=== PATIENT | female | born 1995 | race Caucasian/White ===

== ENCOUNTER 2016-11-16 05:42 | Day surgery (SDC) | payer OTHER ==
[~2016-11-16] VITALS: Ht 160 cm; Wt 91.0 kg
[~2016-11-16 05:42] MED LIST: AMOXICILLIN125 MG PO; BACTRIM,SEPT1 TABLET PO; BENTYL10 MG PO; CHROMAGEN,1 CAPSULE PO; CLEOCIN VAGINAL40 MG VG; ENDOCET 5-3251 EACH PO; FLAGYL500 MG PO; HYDROCODON-ACE1 EAC7 PO; IBUPROFEN800 MG PO; KEFLEX500 MG PO; LORTAB 5-325 M1 EACH PO; MACROBID100 MG PO; MEDROXYPRO150 MG/1 M IM; MOTRIN600 MG PO; Motrin PO; NAPROSYN375 MG PO; NORCO 5/3251 TABLET PO; OMEPRAZOLE40 M1 PO; PEN-VEE K,VEET500 MG PO; PRENATAL TABLE1 EAC3 PO; PRENATAL TABLE1 EACH PO; SERTRALINE HCL50 MG PO; TUMS500 MG PO; TYLENOL EXTRA500 MG PO; TYLENOL WITH C1 EACH PO; VIBRAMYCIN100 MG PO; Vicodin,Norco 5/325 PO; ZANTAC150 MG PO; ZOFRAN ODT4 MG PO; ZOFRAN ODT8 MG PO; ZOFRAN4 MG PO; ZOLOFT50 MG PO
[2016-11-16] MEDS ORDERED: TUMS500 MG PO (06:11)
[2016-11-16] MEDS ORDERED: ZANTAC150 MG PO (06:12)
[2016-11-16] MEDS ORDERED: MOTRIN400 MG PO (06:13)
[2016-11-16 06:16] VITALS: BP 126/80
[2016-11-16] MEDS ORDERED: HYDROCODON-ACE1 EAC7 PO (09:18)
[2016-11-16] MEDS ORDERED: IBUPROFEN800 MG PO (09:18)
[2016-11-16 10:10] VITALS: BP 134/84
[2016-11-16 10:51] VITALS: BP 157/92
== END 2016-11-16 10:50 | disposition home or self-care (01) ==
LOC: SDC 05:42
DX: R10.2 Pelvic and perineal pain (principal); N90.7 Vulvar cyst; N85.4 Malposition of uterus; Z98.51 Tubal ligation status; E66.9 Obesity, unspecified; Z68.34 Body mass index [BMI] 34.0-34.9, adult; G25.81 Restless legs syndrome; F17.200 Nicotine dependence, unspecified, uncomplicated; Z87.42 Personal history of other diseases of the female genital tract; Z82.49 Family history of ischemic heart disease and other diseases of the circulatory system; Z83.3 Family history of diabetes mellitus; Z82.0 Family history of epilepsy and other diseases of the nervous system; Z83.49 Family history of other endocrine, nutritional and metabolic diseases; Z82.5 Family history of asthma and other chronic lower respiratory diseases; Z80.1 Family history of malignant neoplasm of trachea, bronchus and lung; Z80.42 Family history of malignant neoplasm of prostate
CPT/HCPCS: 88305; J0131; J0690; J1100; J1170; J1885; J2250; J2405; J2710; J3010; J7120

== ENCOUNTER 2016-12-17 19:57 | Emergency (ER) | payer OTHER ==
[~2016-12-17] VITALS: Ht 160 cm; Wt 93.6 kg
[~2016-12-17 19:57] MED LIST changes: +MOTRIN400 MG PO
[2016-12-17 20:54] LABS: BASOPHIL COUNT 0.1 K/uL (0-0.1); EOSINOPHIL (%) 1.8 % (0-5); EOSINOPHIL COUNT 0.2 K/uL (0-0.3); HEMATOCRIT 41.5 % (36.0-46.0); IMMATURE GRANULOCYTE (%) 0.5 % (0.0-0.7); IMMATURE GRANULOCYTE COUNT 0.1 K/uL; INSTRUMENT ABS NEUTROPHIL CT 8.5 K/uL; LYMPHOCYTE COUNT 3.1 K/uL (1.0-2.8); MCH 28.5 PG (29.0-34.0); MCHC 32.8 G/DL (30.0-36.0); MEAN PLAT.VOLUME 10.3 uM^3 (9.5-12.4); MONOCYTE (%) 3.9 % (3-12); MONOCYTE COUNT 0.5 K/uL (0-0.8); NEUTROPHIL (%) 68.2 % (45-76); NEUTROPHIL COUNT 8.5 K/uL (1.8-6.4); PLATELET COUNT 283 K/uL (156-360); RBC DIS.WIDTH-CV 13.1 % (11.8-14.6); RBC DIS.WIDTH-SD 41.6 % (39-53); RED BLOOD COUNT 4.77 M/uL (3.80-5.20); WHITE BLOOD COUNT 12.5 K/uL (4.1-10.2)
[2016-12-17 21:06] LABS: ADD MIUA? YES; BILIRUBIN NEGATIVE; BLOOD NEGATIVE; COLOR STRAW ((YELLOW)); GLUCOSE (STRIP) NEGATIVE; KETONES NEGATIVE; LEUKOCYTES SMALL; NITRITE NEGATIVE; PROTEIN (STRIP) NEGATIVE; SPECIFIC GRAVITY 1.009 (1.000-1.030); UROBILINOGEN 0.2 MG/DL (0.2-1.0)
[2016-12-17 21:06] LABS: CHLORIDE 107 mEq/L (99-109); SODIUM 139 mEq/L (136-147)
[2016-12-17 21:08] LABS: GLUCOSE 87 mg/dL (70-99)
[2016-12-17 21:10] LABS: ANION GAP 9 MEQ/L (2-14); TOTAL BILIRUBIN 0.1 mg/dL (0.0-1.0)
[2016-12-17 21:10] LABS: BACTERIA RARE /HPF; EPITHELIAL CELLS RARE /HPF; MUCUS NONE SEEN /LPF; RED BLOOD CELLS 0-5 /HPF (0-5); WHITE BLOOD CELLS 0-5 /HPF (0-5)
[2016-12-17 21:12] LABS: ALKALINE PHOSPHATASE 75 IU/L (3-129); GFR ESTIMATE (CALCULATED) > 59 mL/min/
[2016-12-17 21:13] LABS: UREA NITROGEN (BUN) 11 mg/dL (9-23)
[2016-12-17 21:15] LABS: LIPASE 36 U/L (1.0-51.0)
[2016-12-17 21:22] LABS: QUANTITATIVE HCG < 4.0 MIU/ML
[2016-12-17] MEDS ORDERED: NORCO 5/3251 TABLET PO (22:24)
[2016-12-17] MEDS ORDERED: BENTYL10 MG PO (22:24)
[2016-12-17] MEDS ORDERED: ZOFRAN ODT8 MG PO (22:24)
[2016-12-18 00:04] VITALS: BP 119/79
== END 2016-12-18 00:05 | disposition home or self-care (01) ==
LOC: RME 19:57 → EME 19:57 → RME 12-18 00:05
PROVIDERS: Physician Assistant
DX: R10.9 Unspecified abdominal pain (principal); G43.909 Migraine, unspecified, not intractable, without status migrainosus; K21.9 Gastro-esophageal reflux disease without esophagitis; F17.200 Nicotine dependence, unspecified, uncomplicated
CPT/HCPCS: 74177; 80053; 81003; 83690; 84702; 85025; 99281; 99284; J2270

== ENCOUNTER 2017-07-02 13:53 | Emergency (ER) | payer OTHER ==
[~2017-07-02] VITALS: Ht 160 cm; Wt 92.1 kg
[2017-07-02 14:11] LABS: HEMATOCRIT 43.3 % (36.0-46.0); MCH 29.1 PG (29.0-34.0); MCHC 33.5 G/DL (30.0-36.0); MCV 86.8 FL (83-99); MEAN PLAT.VOLUME 10.6 uM^3 (9.5-12.4); PLATELET COUNT 276 K/uL (156-360); RBC DIS.WIDTH-CV 12.3 % (11.8-14.6); RBC DIS.WIDTH-SD 39.3 % (39-53); RED BLOOD COUNT 4.99 M/uL (3.80-5.20); WHITE BLOOD COUNT 10.3 K/uL (4.1-10.2)
[2017-07-02 14:20] LABS: CHLORIDE 108 mEq/L (99-109); POTASSIUM 4.3 mEq/L (3.7-5.4); SODIUM 138 mEq/L (136-147)
[2017-07-02 14:23] LABS: GLUCOSE 128 mg/dL (70-99)
[2017-07-02 14:24] LABS: ANION GAP 7 MEQ/L (2-14)
[2017-07-02 14:25] LABS: TOTAL BILIRUBIN 0.4 mg/dL (0.0-1.0)
[2017-07-02 14:26] LABS: ALKALINE PHOSPHATASE 74 IU/L (3-129); GFR ESTIMATE (CALCULATED) > 59 mL/min/
[2017-07-02 14:27] LABS: UREA NITROGEN (BUN) 14 mg/dL (9-23)
[2017-07-02 14:37] LABS: QUANTITATIVE HCG < 4.0 MIU/ML
[2017-07-02 17:02] LABS: ADD MIUA? YES; BILIRUBIN NEGATIVE; BLOOD NEGATIVE; COLOR YELLOW ((YELLOW)); GLUCOSE (STRIP) NEGATIVE; KETONES NEGATIVE; LEUKOCYTES LARGE; NITRITE POSITIVE; PROTEIN (STRIP) 30; UROBILINOGEN 0.2 MG/DL (0.2-1.0)
[2017-07-02 17:21] LABS: SPECIFIC GRAVITY 1.072 (1.000-1.030)
[2017-07-02 17:27] LABS: BACTERIA 1+ /HPF; CASTS NONE SEEN /LPF; CRYSTALS NONE SEEN; EPITHELIAL CELLS 1+ /HPF; MUCUS NONE SEEN /LPF; RED BLOOD CELLS 0-5 /HPF (0-5); UCUL ADDED? YES
[2017-07-02] MEDS ORDERED: BACTRIM,SEPT1 TABLET PO (17:29)
[2017-07-02] MEDS ORDERED: BENTYL10 MG PO (17:30)
[2017-07-02] MEDS ORDERED: ZOFRAN ODT4 MG PO (17:30)
[2017-07-02 17:39] VITALS: BP 115/78
== END 2017-07-02 17:39 | disposition home or self-care (01) ==
LOC: EME 13:53
DX: N39.0 Urinary tract infection, site not specified (principal); R11.2 Nausea with vomiting, unspecified; R53.83 Other fatigue; Z90.49 Acquired absence of other specified parts of digestive tract; Z87.440 Personal history of urinary (tract) infections; F17.200 Nicotine dependence, unspecified, uncomplicated
CPT/HCPCS: 74177; 80053; 81003; 84702; 85027; 87077; 87086; 87186; 99281; 99284; J1885; J2405; J7030

== ENCOUNTER 2017-09-18 11:10 | Emergency (ER) | payer OTHER ==
[~2017-09-18] VITALS: Ht 160 cm; Wt 95.0 kg
[2017-09-18 13:17] LABS: HEMATOCRIT 37.5 % (36.0-46.0); MCH 29.9 PG (29.0-34.0); MCHC 34.7 G/DL (30.0-36.0); MCV 86.2 FL (83-99); PLATELET COUNT 274 K/uL (156-360); RBC DIS.WIDTH-CV 11.6 % (11.8-14.6); RED BLOOD COUNT 4.35 M/uL (3.80-5.20); WHITE BLOOD COUNT 6.7 K/uL (4.1-10.2)
[2017-09-18 13:25] LABS: ALBUMIN 3.8 g/dL (3.2-4.8); CHLORIDE 108 mEq/L (99-109)
[2017-09-18 13:28] LABS: GLUCOSE 94 mg/dL (70-99); TOTAL PROTEIN 6.6 g/dL (6.4-8.3)
[2017-09-18 13:30] LABS: TOTAL BILIRUBIN 0.4 mg/dL (0.0-1.0)
[2017-09-18 13:31] LABS: ALKALINE PHOSPHATASE 85 IU/L (3-129)
[2017-09-18 13:32] LABS: CREATININE 0.7 mg/dL (0.6-1.3); GFR ESTIMATE (CALCULATED) > 59 mL/min/
[2017-09-18 13:33] LABS: AST (GOT) 37 IU/L (2-34); UREA NITROGEN (BUN) 7 mg/dL (9-23)
[2017-09-18 13:34] LABS: ALT (GPT) 118 IU/L (3-49)
[2017-09-18 13:40] LABS: SODIUM 143 mEq/L (136-147)
[2017-09-18 13:43] LABS: QUANTITATIVE HCG < 4.0 MIU/ML
[2017-09-18] MEDS ORDERED: PEPCID20 MG PO (14:53)
[2017-09-18] MEDS ORDERED: MEDROL DOSEPAK4 MG PO (14:53)
[2017-09-18 15:23] VITALS: BP 130/86
== END 2017-09-18 15:25 | disposition home or self-care (01) ==
LOC: EME 11:10
PROVIDERS: Nurse Practitioner Family
DX: L30.9 Dermatitis, unspecified (principal); L29.9 Pruritus, unspecified; J02.9 Acute pharyngitis, unspecified; R63.1 Polydipsia; R53.83 Other fatigue; Z87.440 Personal history of urinary (tract) infections; F17.200 Nicotine dependence, unspecified, uncomplicated
CPT/HCPCS: 80053; 81003; 84702; 85027; 87651 90; 99281; 99284; J1100; J1200

== ENCOUNTER → 2017-10-07 | Outpatient (CLI) | payer OTHER ==
[~2017-10-07] MED LIST changes: +MEDROL DOSEPAK4 MG PO; +PEPCID20 MG PO
== END | disposition home or self-care (01) ==
LOC: AMB 09:20
DX: K22.10 Ulcer of esophagus without bleeding (principal); G25.81 Restless legs syndrome; F41.8 Other specified anxiety disorders; E66.9 Obesity, unspecified; Z68.35 Body mass index [BMI] 35.0-35.9, adult; F17.200 Nicotine dependence, unspecified, uncomplicated; Z80.1 Family history of malignant neoplasm of trachea, bronchus and lung; Z82.49 Family history of ischemic heart disease and other diseases of the circulatory system; Z83.3 Family history of diabetes mellitus; Z83.49 Family history of other endocrine, nutritional and metabolic diseases; Z80.42 Family history of malignant neoplasm of prostate; Z82.5 Family history of asthma and other chronic lower respiratory diseases
CPT/HCPCS: 88305; 88342 TC; J2250

== ENCOUNTER 2017-10-16 21:13 | Emergency (ER) | payer OTHER ==
[~2017-10-16] VITALS: Ht 160 cm; Wt 97.5 kg
[~2017-10-16 21:13] MED LIST changes: +TYLENOL REGULA325 MG PO
[2017-10-16 23:22] VITALS: BP 135/96
== END 2017-10-16 23:22 | disposition home or self-care (01) ==
LOC: EME 21:13
DX: M79.604 Pain in right leg (principal); M79.89 Other specified soft tissue disorders; F17.200 Nicotine dependence, unspecified, uncomplicated
CPT/HCPCS: 93971; 99281; 99284

== ENCOUNTER → 2017-10-21 | Outpatient (CLI) | payer OTHER ==
[~2017-10-21] VITALS: Ht 160 cm; Wt 97.1 kg
== END | disposition home or self-care (01) ==
LOC: AMB 07:50
PROC: 0DJD8ZZ Inspection of Lower Intestinal Tract, Via Natural or Artificial Opening Endoscopic (ICD-10-PCS; principal; 2017-10-21)
DX: R10.84 Generalized abdominal pain (principal); F41.8 Other specified anxiety disorders; F17.200 Nicotine dependence, unspecified, uncomplicated
CPT/HCPCS: J2250

== ENCOUNTER 2018-02-20 19:53 | Emergency (ER) | payer OTHER ==
[~2018-02-20] VITALS: Ht 160 cm; Wt 93.0 kg
[2018-02-20 20:44] LABS: HEMATOCRIT 37.7 % (36.0-46.0); MCH 29.6 PG (29.0-34.0); MCHC 34.5 G/DL (30.0-36.0); MCV 85.9 FL (83-99); PLATELET COUNT 272 K/uL (156-360); RBC DIS.WIDTH-CV 12.3 % (11.8-14.6); RBC DIS.WIDTH-SD 38.9 % (39-53); RED BLOOD COUNT 4.39 M/uL (3.80-5.20); WHITE BLOOD COUNT 9.9 K/uL (4.1-10.2)
[2018-02-20 20:48] LABS: APPEARANCE CLOUDY ((CLEAR)); BILIRUBIN NEGATIVE; BLOOD NEGATIVE; COLOR AMBER ((YELLOW)); GLUCOSE (STRIP) NEGATIVE; KETONES NEGATIVE; LEUKOCYTES MODERATE; NITRITE POSITIVE; PROTEIN (STRIP) 30; SPECIFIC GRAVITY 1.024 (1.000-1.030); UROBILINOGEN 0.2 MG/DL (0.2-1.0)
[2018-02-20 20:58] LABS: ALBUMIN 4.2 g/dL (3.2-4.8); CHLORIDE 108 mEq/L (99-109); POTASSIUM 3.9 mEq/L (3.7-5.4)
[2018-02-20 20:59] LABS: SODIUM 140 mEq/L (136-147)
[2018-02-20 21:01] LABS: GLUCOSE 95 mg/dL (70-99); TOTAL PROTEIN 7.3 g/dL (6.4-8.3)
[2018-02-20 21:03] LABS: TOTAL BILIRUBIN 0.3 mg/dL (0.0-1.0)
[2018-02-20 21:04] LABS: ALKALINE PHOSPHATASE 64 IU/L (3-129); CREATININE 0.8 mg/dL (0.6-1.3); GFR ESTIMATE (CALCULATED) > 59 mL/min/
[2018-02-20 21:06] LABS: AST (GOT) 65 IU/L (2-34); UREA NITROGEN (BUN) 7 mg/dL (9-23)
[2018-02-20 21:07] LABS: ALT (GPT) 132 IU/L (3-49)
[2018-02-20 21:16] LABS: QUANTITATIVE HCG < 4.0 MIU/ML
[2018-02-20 21:25] LABS: BACTERIA 3+ /HPF; EPITHELIAL CELLS 2+ /HPF; MUCUS 1+ /LPF; RED BLOOD CELLS RARE /HPF (0-5); UCUL ADDED? YES; WHITE BLOOD CELLS 20-30 /HPF (0-5)
[2018-02-20] MEDS ORDERED: KEFLEX500 MG PO (23:09)
[2018-02-20] MEDS ORDERED: ZOFRAN4 MG PO (23:09)
[2018-02-20 23:23] VITALS: BP 111/77
== END 2018-02-20 23:24 | disposition home or self-care (01) ==
LOC: EME 19:53
PROVIDERS: Nurse Practitioner Family
DX: N39.0 Urinary tract infection, site not specified (principal); R11.2 Nausea with vomiting, unspecified; R19.7 Diarrhea, unspecified; R10.33 Periumbilical pain; N83.201 Unspecified ovarian cyst, right side; K76.0 Fatty (change of) liver, not elsewhere classified; N28.1 Cyst of kidney, acquired; Z87.440 Personal history of urinary (tract) infections; Z90.49 Acquired absence of other specified parts of digestive tract; F17.200 Nicotine dependence, unspecified, uncomplicated
CPT/HCPCS: 74177; 80053; 81003; 84702; 85027; 87077; 87086; 87186; J1885; J2405; J3010